=== PATIENT | male | born 1950 | race Caucasian/White ===

== ENCOUNTER 2016-11-05 14:04 | Emergency (ER) | payer OTHER, MEDICARE ==
[2016-11-05] VITALS (7 sets, daily range): BP systolic 113–134; BP diastolic 55–64; PULSE 75–96; RESP 18–20; O2SAT 97–98
[~2016-11-05] VITALS: Ht 180.3 cm; Wt 95.0 kg
[~2016-11-05 14:04] MED LIST: CHOL400T27 PO; CHOL500011 PO; Depo-Testosterone IM; INSU100C8 SQ; LISI2.5T66 PO; MULT-892 PO; NPH,100V SQ; OMEP20TA86 PO; OXC20TCR PO; OXYC10TA8 PO; Vitamin B12 IM; [UNRECOGNIZED DRUG - CODE] TD
--- NOTE | 2016-11-05 14:42 | ED.REPORT ---
HPI-General Illness Date of Service Nov 05, 2016 ED Provider: Dr. Pereira Pt is a 66 y/o male w/ a hx of prior GI bleed, Crohn's disease, ulcerative colitis, HTN, IDDM, presenting to the ED due to abnormal labs. The patient had labs today ordered by his PCP Dr. Grey which showed anemia with HGB of 7.9 and was recommended to come to the ED. He has been having non-radiating, intermittent, aching, diffuse lower abdominal pain since his colonoscopy on 10/13. 4 days after the colonoscopy he had an episode of bright red rectal bleeding which seemed to resolve spontaneously. He had another quite severe episode of rectal bleeding 6 days ago. Pt denies fever, chills, testicular pain, vomiting. Nursing Notes Stated Complaint: POSS BLOOD TRANSFUSION Chief Complaint: Male Abdominal Pain Nursing Notes Reviewed: Yes Allergies: Coded Allergies: infliximab (Verified Allergy, Severe, SERUM SICKNESS, 11/05/16) Uhdiddq-Xcn-Vls Reductase Inhibitor (Verified Adverse Reaction, Intermediate, MUSCLE ACHES, 11/05/16) Scheduled Aspirin Chew (Aspirin Chew) 81 Mg Chew 81 MG PO QAM Budesonide (Uceris) 9 Mg Tabdr...er 9 MG PO DAILYWM Cholecalciferol (Vitamin D3) (Vitamin D3) 5,000 Unit Tablet 5,000 UNIT PO QAM Cyanocobalamin (Vitamin B-12) (B-12 Compliance) 1,000 Mcg/Ml Kit 1,000 MCG IM [id number] Insulin Aspart (NovoLOG U100 Insulin Vial) 100 U/Ml U 5-10 UNIT SUBQ TIDWM Lisinopril (Lisinopril) 2.5 Mg Tablet 2.5 MG PO QAM Multivit with Calcium,Iron,Min (Maximum Daily Multivitamin) 1 Each Tablet 1 EACH PO QAM NPH, Human Insulin Isophane (Novolin-N U100 Insulin Vial) 100 Unit/1 Ml Vial 20 UNIT SUBQ BIDWM [place]-3/Dha/Epa/Fish Oil (Fish Oil 1,000 mg Softgel) 1 Each Capsule 1 CAPSULE PO QAM Omeprazole (Omeprazole) 20 Mg Capsule. 20 MG PO QAM Oxycodone (Roxicodone) 5 Mg Tablet 15 MG PO QPM MAX 6 PER DAY Oxycodone ER (Oxycontin) 10 Mg Tab.er.12h 10 MG PO HS Oxycodone ER (Oxycontin) 15 Mg Tab.er.12h 15 MG PO QAM Pramipexole Dihydrochloride (Mirapex) 0.25 Mg Tablet 0.25 MG PO QPM Testosterone Cypionate (Testosterone Cypionate) 200 Mg/1 Ml Vial 200 MG IM [id number] Venlafaxine ER (Venlafaxine ER) 75 Mg Cap.er.24h 75 MG PO QAM oxyCODONE (oxyCODONE) 5 Mg Tablet 5 MG PO BIDBL Max 6 per day Scheduled PRN Albuterol HFA (Proair HFA) 8.5 Gm Hfa.aer.ad 2 PUFFS INHALATION Q4H PRN PRN For Shortness of Breath Baclofen (Baclofen) 10 Mg Tablet 10-20 MG PO TID PRN PRN For Spasm Beclomethasone Dipropionate (Qvar) 8.7 Gm Aer.w.adap 1 PUFF INHALATION BID PRN PRN ASTHAM EXAC 80 mcg Ketoconazole (Ketoconazole) 15 Gm Cream..g. 1 APPLIC TP BID PRN PRN RASH Olopatadine (Patanol) 5 Ml Soln 2 DROP BOTH_EYES Q12H PRN PRN ITCHY EYES/ ALLERGIES General Time Seen by MD: 14:42 Chief Complaint Other (anemia) Hx Obtained From: Patient Arrived By: Walk-in Sudden in Onset?: No Onset Occurred: Onset unknown Symptom Duration: Since onset Location: : Abdomen Quality: Aching Radiation: : Does not radiate Severity: Current: Mild Severity: Maximum: Moderate Recent Healthcare: Previous diagnosis Similar Sx Previous: Yes Past Medical History Past Medical History Notes: GI: In [place] Past Medical History Crohn's disease Hypertension Hx bronchitis Hx GI bleed Arthritis Diabetes mellitus Past Surgical History R knee Multiple colonoscopies Smoking History Former Smoker Social History Alcohol Use: Denies alcohol use Drug Use: Denies drug use Ambulatory Status Independent Review of Systems Full Review of Systems Constitutional: Denies: Chills, Fever Respiratory: Denies: Non-productive cough Cardiovascular: Denies: Chest pain GI: Reports: Abdominal pain, Hematochezia, Denies: Nausea, Vomiting Male: Denies Testicular pain Musculoskeletal: Denies: Neck pain Hematologic: Denies Bruising, Denies Petechiae Skin: Denies Rash Neurologic: Denies: Headache Complete sys rev & neg: except as marked. Physical Exam Nursing note and vitals reviewed. Constitutional: Well-developed, well-nourished. Not diaphoretic. NAD. Head: Normocephalic and atraumatic. Mouth/Throat: Oropharynx is clear and moist. No oropharyngeal exudate. Eyes: EOM are normal. Pupils are equal, round, and reactive to light. Neck: Supple, no tracheal deviation. Cardiovascular: Normal rate, regular rhythm. Equal and intact distal pulses throughout. Pulmonary/Chest: Effort normal and breath sounds normal. No respiratory distress. Abdominal: Soft. No distension. Mild lower abdominal tenderness with no rebound , or guarding. Bowel sounds present. Musculoskeletal: Range of motion grossly intact, moving all extremities. No edema or tenderness appreciated. Neurological: AOx3. Grossly nonfocal exam. Strength and sensation intact and equal to bilateral upper and lower extremities. Skin: Warm and dry, no rashes or pallor appreciated. Psychiatric: Appropriate mood and affect. Behavior appears normal. Vital Signs Vital Signs Date Time Temp Pulse Resp B/P Pulse Ox O2 Delivery O2 Flow Rate FiO2 11/05/16 19:40 36.7 93 20 115/62 98 Room Air 11/05/16 19:22 36.7 80 20 11/05/16 19:19 36.7 80 20 134/56 97 Room Air 11/05/16 16:34 78 20 124/60 98 Room Air 11/05/16 14:14 36.7 96 18 119/61 97 Room Air Initial VS: Reviewed, Vital signs normal Interpretation & Diagnostics Lab Results Interpretation Result Diagram: 11/05/16 1430 11/05/16 1430 Test 11/05/16 14:30 11/05/16 16:52 11/05/16 18:08 White Blood Count 8.2th/mm3 (3.8-10.1) Red Blood Count 4.18mil/mm3 (4.40-5.80) Hemoglobin 8.1g/dL (13.8-17.2) Hematocrit 27.9% (41.0-50.0) Mean Corpuscular Volume 66.7fL (81-100) Mean Corpuscular Hemoglobin 19.4pg (27.0-35.0) Mean Corpuscular Hemoglobin Concent 29.0% (32.0-37.0) Red Cell Distribution Width 19.0% (12.3-15.4) Platelet Count 482bil/L (150-400) Neutrophils (%) (Auto) 66.0% (40-74) Lymphocytes (%) (Auto) 19.7% (14-46) Monocytes (%) (Auto) 13.0% (4-12) Eosinophils (%) (Auto) 0.9% (0-5) Basophils (%) (Auto) 0.2% (0-3) Erythrocyte Sedimentation Rate 1mm/hr (0-30) Prothrombin Time 10.6sec (8.1-12.5) Prothromb Time International Ratio 0.99ratio Sodium Level 137mEq/L (134-144) Potassium Level 4.2mEq/L (3.5-5.2) Chloride Level 100mEq/L (97-108) Carbon Dioxide Level 25mmol/L (18-29) Blood Urea Nitrogen 15mg/dL (8-27) Creatinine 0.78mg/dL (0.76-1.27) Estimat Glomerular Filtration Rate 106mL/min (>59) Glucose Level 79mg/dL (60-99) Calcium Level 8.4mg/dL (8.5-10.1) Total Bilirubin 0.3mg/dL (0.0-1.2) Aspartate Amino Transf (AST/SGOT) 23U/L (0-50) Alanine Aminotransferase (ALT/SGPT) 27U/L (0-44) Alkaline Phosphatase 62U/L (25-160) C-Reactive Protein 0.6mg/dL (0.0-0.5) Total Protein 6.8g/dL (6.4-8.4) Albumin 3.8g/dL (3.4-5.0) Lactic Acid Level 0.9mmol/L (0.4-2.0) Magnesium Level 2.0mg/dL (1.6-2.6) Troponin T < 0.010ug/L (0.0-0.011) Lipase 12U/L (13-60) Hold Urine Received (Received) ECG Interpretation ECG Interpretation: Sinus rhythm rate 79 Probable LAE Time: 15:00 Interpreted by: ED physician Normal ECG Interpretation: No acute ischemic changes CT Abd / Pelvis Interpretation IMPRESSION: Previous surgery in the region of the cecum thought to be for appendix removal. No evidence for obstruction, inflammation, stone, mass, hernia. Cause of pain is not identified. Dictated by: Alfredo Strickland M.D. on 11/05/2016 at 16:58 Approved by: Alfredo Strickland M.D. on 11/05/2016 at 17:10 Study type: Abdominal CT IV contrast Interpretation / Wet Read by: Interpret - Radiologist Re-Eval/Medical Decision Med Decision/Clinical Course In summary, 66-year-old male with a complex past medical history including inflammatory bowel disease presenting to the ED for evaluation of anemia. He does have some lower abdominal pain that he feels is consistent with previous Crohn's flares; a CT scan of the patient's abdomen and pelvis was obtained, however this did not demonstrate any evidence of any Crohn's exacerbation or other acute abnormality. Initial laboratory studies are notable for a hemoglobin of 8.1 from 7.9 yesterday, however this was 11.7 5 months ago; CMP grossly within normal limits. CRP is mildly elevated at 0.6, however ESR within normal limits. Urinalysis negative for infection. An EKG was obtained and demonstrates normal sinus rhythm, no acute ischemic changes. He denies having any bright red blood in his stool over the past several days, however has not had any bowel movements over the past several days. He denies noting any black or dark stools. He is not actively bleeding at this time. I discussed the case with Dr. Payan; appreciate his involvement. He recommended transfusion of 2 units of blood and then discharge given normal vital signs, no active bleeding at this time, with the intention to have him get endoscopy in the next several days. He said that he would be happy to see the patient, however if the patient would like to see his fur remodeler in [place], that would be fine as well. Patient was consented for and transfused 2 units of packed red blood cells. He tolerated this well and without complication. He continues to feel fine here in the ED. Given the above, reasonable to discharge home with very careful return precautions, follow-up the next 1-2 days. Patient agreeable to the plan as stated, no further questions. Source of Hx: Old records Time of Eval: 17:18 Re-Evaluation/Progress Note: Pt rechecked. Informed pt of need for admission for GI bleed and anemia. Pt understands and agrees with plan for admission. All questions addressed. Time of Eval: 18:07 Re-Evaluation/Progress Note: Changed his mind regarding admission. Would like to be dced. F/U instructions and RTER warnings given. All questions addressed. Consultation : Referral / Consult Name: Jamir Payan MD Call Returned at: 18:10 Lunchroom Mother: Agrees with eval, Agrees with plan Note: Consulted GI. Recommends give a couple units of blood and then give option of outpatient colonoscopy or outpatient colonoscopy with him this week. Counseled Regarding: Diagnosis, Lab results, Need for follow-up, When/why to return to ED Discharge & Departure Primary Impression: GI bleed GI bleed type/associated pathology: anorectal hemorrhage Qualified Code: K62.5 - Hemorrhage of anus and rectum Additional Impression: Acute blood loss anemia Disposition: Home Discharge Condition All VS Reviewed: Yes Condition: Stable Patient Instructions: Anemia (ED), Gastrointestinal Bleeding (ED) Additional Instructions: Thank you for allowing us to be a part of your care in the ED today. You are quite anemic likely caused by the GI bleed. You have chosen to go home today instead of being admitted. Call either your GI doctor in [place] or our GI physician Dr. Payan to schedule a colonoscopy to be performed within 1 week. Please schedule a follow up appointment with your primary care physician tomorrow for a recheck. Please return to the emergency department for any new or worsening symptoms including any recurrence of rectal bleeding, dark stools, lightheadedness, dizziness, nausea, vomiting, abdominal pain, shortness of breath, chest pain, one sided weakness/numbness, fevers, or chills, or if there's anything else of concern to you. Referrals: Ginger Grey MD (PCP) Jamir Payan MD Scribe Attestation Portions of this note were transcribed by Donato Winter. I, Dr. Pereira personally performed the history, physical exam and medical decision-making; I reviewed and confirmed the accuracy of the information in the transcribed note. copies to: Ginger Grey MD; aJmir Payan MD, William B MD Nov 05, 2016 14:42 DONATO WINTER Nov 05, 2016 16:25
[2016-11-05 14:46] LABS: BASOPHILS % (AUTO) 0.2 % (0-3); EOSINOPHILS % (AUTO) 0.9 % (0-5); Mean Corpuscular Hemoglobin 19.4 pg (27.0-35.0); Mean Corpuscular Volume 66.7 fL (81-100); Platelet Count 482 bil/L (150-400)
[2016-11-05 15:02] LABS: INR 0.99 ratio
[2016-11-05] MEDS ORDERED: Ondansetron 2 mg/mL 2 mL Inj IVPUSH PRN (16:20)
[2016-11-05] MEDS ORDERED: 0.9% Sodium Chloride 1,000 ML IV ONE (16:20)
[2016-11-05] MEDS: HYDROmorphone 0.5 mg/0.5 mL iSecure Syringe IVPUSH PRN ×2 (16:35→21:36)
--- NOTE | 2016-11-05 17:12 | DRSVH ---
PROCEDURE: CT ABDOMEN AND PELVIS WITH CONTRAST ([id number]) INDICATIONS: abd pain, GI bleed, hx crohn's TECHNIQUE: After the administration of intravenous contrast, 5 mm thick sections acquired from the diaphragm to the symphysis. 5 mm coronal and sagittal reformats were acquired. For radiation dose reduction, the following was used: automated exposure control, adjustment of mA and/or kV according to patient genoveva null. COMPARISON: [facility], CT, ABD/PELVIS W/CON (PN), 01/01/2014, 2:51. FINDINGS: Image quality: Excellent. ABDOMEN: Lung bases: Lung bases are clear. Heart size is normal. Solid organs: Liver and spleen are normal in size and enhancement. Gallbladder is within normal amaya its. Biliary system is non dilated. Pancreas enhances normally. No adrenal nodules. Kidneys demon strate normal size and enhancement, without hydronephrosis. Renal cysts are present, similar to the previous CT but perhaps minimally larger. Peritoneum and bowel: Bowel loops demonstrate normal wall thickness and caliber. No free fluid or a ir. Vascular clips are present in the region of the tip of the cecum. Nodes and vessels: No retroperitoneal or mesenteric adenopathy by size criteria. Aorta and inferior vena cava are normal in size. Miscellaneous: No ventral hernias. PELVIS: Genitourinary: Bladder wall thickness is normal. Mild prostate enlargement. Miscellaneous: No inguinal hernias or adenopathy. Bones: No suspicious bony lesions. No vertebral body compression fractures. IMPRESSION: Previous surgery in the region of the cecum thought to be for appendix removal. No evidence for obstruction, inflammation, stone, mass, hernia. Cause of pain is not identified. Dictated by: Alfredo Strickland M.D. on 11/05/2016 at 16:58 Approved by: Alfredo Strickland M.D. on 11/05/2016 at 17:10
[2016-11-05 17:27] LABS: TROPONIN T < 0.010 ug/L (0.0-0.011)
[2016-11-05 17:39] LABS: Lipase 12 U/L (13-60)
[2016-11-05] MEDS ORDERED: BECL8.7A6 INHALATION (18:10)
[2016-11-05] MEDS ORDERED: NYST1000 PO (18:10)
[2016-11-05] MEDS ORDERED: PRE10 PO (18:10)
[2016-11-05] MEDS ORDERED: VENL75CA95 PO (18:16)
[2016-11-05] MEDS ORDERED: OXYC-530 PO (18:16)
[2016-11-05] MEDS ORDERED: OXYC10TA69 PO ×2 (18:16)
[2016-11-05] MEDS ORDERED: CYAN100096 IM (18:16)
[2016-11-05] MEDS ORDERED: KTC2C15 TP (18:16)
[2016-11-05] MEDS ORDERED: ALBU8.5H2 INHALATION (18:16)
[2016-11-05] MEDS ORDERED: BACL10TA PO (18:16)
[2016-11-05] MEDS ORDERED: OMEG-38 PO (18:19)
[2016-11-05] MEDS ORDERED: OLP.1OP5 BOTH_EYES (18:19)
[2016-11-05] MEDS ORDERED: TEST200V20 IM (18:19)
[2016-11-05] MEDS ORDERED: ASPI81TA3 PO (18:19)
[2016-11-05] MEDS ORDERED: PRAM0.252 PO (18:19)
[2016-11-05] MEDS ORDERED: OXYC15TA73 PO (18:48)
[2016-11-05] MEDS ORDERED: NPH,100V10 SUBQ (18:48)
[2016-11-05] MEDS ORDERED: MULT-321 PO (18:50)
[2016-11-05] MEDS ORDERED: CHOL500011 PO (18:50)
[2016-11-05] MEDS ORDERED: LISI2.5T PO (18:50)
[2016-11-05] MEDS ORDERED: OMEP20CA11 PO (18:51)
[2016-11-05] MEDS ORDERED: INSU100C8 SUBQ (18:51)
[2016-11-05] MEDS ORDERED: OXYC-474 PO (18:52)
[2016-11-05] MEDS ORDERED: BUDE9TAB PO (18:55)
[2016-11-06] VITALS: BP 126/63; PULSE 75; RESP 16; O2SAT 97
== END 2016-11-06 00:12 | disposition home or self-care (01) ==
LOC: SED 14:04
DX: K62.5 Hemorrhage of anus and rectum (principal); D62 Acute posthemorrhagic anemia; I10 Essential (primary) hypertension; E11.9 Type 2 diabetes mellitus without complications; K50.90 Crohn's disease, unspecified, without complications; Z79.82 Long term (current) use of aspirin; Z79.4 Long term (current) use of insulin; Z87.891 Personal history of nicotine dependence; Z88.8 Allergy status to other drugs, medicaments and biological substances
CPT/HCPCS: 36415; 36430; 74177; 80053; 83605; 83690; 83735; 84484; 85025; 85610; 85651; 86140; 86850; 86922; 93005; 96361; 96374; 96375; 96376; 99285; J1170; J2405; J7030; P9021; Q9967